=== PATIENT | male | born 1975 | race Caucasian/White ===

== ENCOUNTER → 2016-08-23 | Outpatient (REF) | payer OTHER | LOC: M SFHCPLAZ 11:25 | PROVIDERS: ATTEND Student in an Organized Health Care Education/Training Program | DX: E11.9 Type 2 diabetes mellitus without complications (principal) ==

== ENCOUNTER 2017-01-30 19:37 | Emergency (ER) | payer MEDICAID, OTHER, SELFPAY ==
[~2017-01-30] VITALS: Ht 170.2 cm; Wt 140.9 kg
[2017-01-30] MEDS ORDERED: IBUPROFEN 800 MG TAB PO ONE (21:30)
[2017-01-30 22:04] LABS: BASO % 0.4 % (0.0-1.0); EOS # 0.3 K/mm3 (0.0-0.50); EOS % 2.9 % (0.0-3.0); LARGE UNSTAINED CELL # 0.2 K/mm3 (0.0-0.4); LARGE UNSTAINED CELL % 1.5 % (0.0-4.0); LYMPH # 2.5 K/mm3 (1.5-4.5); LYMPH % 19.6 % (24.0-44.0); MEAN CORPUSCULAR HEMOGLOBIN 30.5 pg (27.0-33.0); MEAN CORPUSCULAR HGB CONC 33.5 g/dl (32.0-36.5); MONO # 0.5 K/mm3 (0.0-0.8); MONO % 4.3 % (0.0-5.0); NEUTROPHILS # 8.4 K/mm3 (1.8-7.7); NEUTROPHILS % 71.4 % (36.0-66.0); PLATELET COUNT, AUTOMATED 224 k/mm3 (150-450); RED CELL DISTRIBUTION WIDTH 14.7 % (11.5-14.5); WHITE BLOOD COUNT 11.8 K/mm3 (4.0-10.0)
[2017-01-30 22:19] LABS: ANION GAP 8 MEQ/L (8-16); BLOOD UREA NITROGEN 7 MG/DL (7-18); CALCIUM LEVEL 9.1 MG/DL (8.5-10.1); CARBON DIOXIDE LEVEL 27 MEQ/L (21-32); CHLORIDE LEVEL 107 MEQ/L (98-107); CREATININE FOR GFR 0.64 MG/DL (0.70-1.30); GLOMERULAR FILTRATION RATE > 60.0 (>60); GLUCOSE, FASTING 101 MG/DL (70-105); POTASSIUM SERUM 4.3 MEQ/L (3.5-5.1); SODIUM LEVEL 142 MEQ/L (136-145)
[2017-01-30 22:21] LABS: ERYTHROCYTE SEDIMENTATION RATE 23 mm/hr (0-15)
[2017-01-30] MEDS ORDERED: LIPI80TA PO (22:28)
[2017-01-30] MEDS ORDERED: BREO1INH INH (22:28)
[2017-01-30] MEDS ORDERED: METF10004 PO (22:28)
[2017-01-30] MEDS ORDERED: PROTPAK PO (22:28)
[2017-01-30] MEDS ORDERED: ALBU17IN INH (22:28)
[2017-01-30] MEDS ORDERED: RANI15TA PO (22:28)
[2017-01-30] MEDS ORDERED: CYCL10TA PO (22:42)
[2017-01-30] MEDS ORDERED: CYCLOBENZAPRINE 10 MG TAB PO ONE (22:45)
[2017-01-30 22:56] VITALS: BP 138/95
== END 2017-01-30 22:58 | disposition home or self-care (01) ==
LOC: M ED 19:37
DX: G44.209 Tension-type headache, unspecified, not intractable (principal); E11.9 Type 2 diabetes mellitus without complications; F33.9 Major depressive disorder, recurrent, unspecified; F41.9 Anxiety disorder, unspecified; J45.909 Unspecified asthma, uncomplicated; F17.210 Nicotine dependence, cigarettes, uncomplicated; E78.00 Pure hypercholesterolemia, unspecified; Z79.899 Other long term (current) drug therapy; Z79.51 Long term (current) use of inhaled steroids; Z79.84 Long term (current) use of oral hypoglycemic drugs; Z91.030 Bee allergy status

== ENCOUNTER → 2017-04-18 | Outpatient (REF) | payer OTHER ==
[~2017-04-18] MED LIST: ALBU17IN INH; BREO1INH INH; CYCL10TA PO; LIPI80TA PO; METF10004 PO; PROTPAK PO; RANI15TA PO
[2017-04-18 12:09] LABS: ALBUMIN 3.4 GM/DL (3.2-5.2); ALKALINE PHOSPHATASE 83 U/L (45-117); ALT/SGPT 79 U/L (12-78); ANION GAP 8 MEQ/L (8-16); AST/SGOT 52 U/L (7-37); BILIRUBIN,TOTAL 0.4 MG/DL (0.2-1.0); BLOOD UREA NITROGEN 10 MG/DL (7-18); CALCIUM LEVEL 8.7 MG/DL (8.5-10.1); CARBON DIOXIDE LEVEL 27 MEQ/L (21-32); CHLORIDE LEVEL 104 MEQ/L (98-107); CHOLESTEROL LEVEL 159 MG/DL (<200); CREATININE FOR GFR 0.66 MG/DL (0.70-1.30); GLOMERULAR FILTRATION RATE > 60.0 (>60); GLUCOSE, FASTING 156 MG/DL (70-105); POTASSIUM SERUM 4.1 MEQ/L (3.5-5.1); SODIUM LEVEL 139 MEQ/L (136-145); TOTAL PROTEIN 6.5 GM/DL (6.4-8.2); TRIGLYCERIDES LEVEL 188 MG/DL (<150)
== END ==
LOC: M SFHCPLAZ 09:20
DX: Z51.81 Encounter for therapeutic drug level monitoring (principal); Z79.899 Other long term (current) drug therapy; E78.2 Mixed hyperlipidemia; E11.9 Type 2 diabetes mellitus without complications

== ENCOUNTER → 2017-05-24 | Outpatient (CLI) | payer OTHER ==
[2017-05-24 11:41] LABS: FERRITIN 159 NG/ML (26-388); PERCENT SATURATION 19.1 % (19.7-50.0); TOTAL IRON BINDING CAPACITY 351 UG/DL (250-450)
[2017-05-25 10:01] LABS: HEPATITIS B SURFACE ANTIBODY NEGATIVE (POSITIVE)
[2017-05-25 14:13] LABS: ALPHA 1 ANTITRYPSIN 151 mg/dL (90-200)
== END ==
LOC: M LAB 10:25
DX: R74.8 Abnormal levels of other serum enzymes (principal)
CPT/HCPCS: 86706

== ENCOUNTER → 2017-12-12 | Outpatient (REF) | payer OTHER ==
[2017-12-12 12:00] LABS: ALBUMIN 3.5 GM/DL (3.2-5.2); ALBUMIN/GLOBULIN RATIO 1.09 (1.00-1.93); ALKALINE PHOSPHATASE 96 U/L (45-117); ALT/SGPT 76 U/L (12-78); AST/SGOT 62 U/L (7-37); BILIRUBIN,DIRECT 0.1 MG/DL (0.0-0.2); BILIRUBIN,TOTAL 0.4 MG/DL (0.2-1.0); TOTAL PROTEIN 6.7 GM/DL (6.4-8.2)
== END ==
LOC: M SFHCPLAZ 09:13
DX: R94.5 Abnormal results of liver function studies (principal)
CPT/HCPCS: 80076

== ENCOUNTER → 2018-04-24 | Outpatient (REF) | payer OTHER | LOC: M SFHCPLAZ 11:21 | DX: E11.9 Type 2 diabetes mellitus without complications (principal); Z53.8 Procedure and treatment not carried out for other reasons ==

== ENCOUNTER 2018-06-12 20:27 | Emergency (ER) | payer OTHER ==
[~2018-06-12] VITALS: Ht 170.2 cm; Wt 139.6 kg
[2018-06-12 20:28] VITALS: BP 157/76
[2018-06-12] MEDS ORDERED: IBUPROFEN 800 MG TAB PO ONE (22:45)
[2018-06-12] MEDS ORDERED: IBUP-354 PO (22:50)
--- NOTE | 2018-06-13 01:43 | REP ---
Clinical: Trauma/injury. Technique: AP and lateral views of the right knee. Findings: Lateral view suggests anterior suprapatellar effusion and should be correlated clinically. The osseous structures demonstrate mild arthritic changes. No obvious acute fracture or dislocation identified. Impression: Cannot exclude suprapatellar effusion. No obvious acute fracture or dislocation identified. Electronically Signed by Arnold Brice MD 06/13/2018 01:35 A
--- NOTE | 2018-06-13 15:37 | ED PDOC ---
Post-Departure Follow-Up dr nath faxed formal report of right knee film for fu Tushar Lancaster MD Jun 13, 2018 15:37
== END 2018-06-12 23:10 | disposition home or self-care (01) ==
LOC: M ED 20:27
DX: S83.91XA Sprain of unspecified site of right knee, initial encounter (principal); X58.XXXA Exposure to other specified factors, initial encounter; Y92.89 Other specified places as the place of occurrence of the external cause; J45.909 Unspecified asthma, uncomplicated; E11.9 Type 2 diabetes mellitus without complications; K21.9 Gastro-esophageal reflux disease without esophagitis; E78.00 Pure hypercholesterolemia, unspecified; Z79.899 Other long term (current) drug therapy; Z79.84 Long term (current) use of oral hypoglycemic drugs; Z91.030 Bee allergy status; Z77.098 Contact with and (suspected) exposure to other hazardous, chiefly nonmedicinal, chemicals

== ENCOUNTER → 2018-07-19 | Outpatient (REF) | payer OTHER ==
[~2018-07-19] MED LIST changes: +IBUP-354 PO; +KETO10TAB PO; +PRED5TA
[2018-07-19 13:13] LABS: ALBUMIN 3.4 GM/DL (3.2-5.2); ALT/SGPT 65 U/L (12-78); BILIRUBIN,TOTAL 0.4 MG/DL (0.2-1.0); BLOOD UREA NITROGEN 8 MG/DL (7-18); CALCIUM LEVEL 8.4 MG/DL (8.5-10.1); CARBON DIOXIDE LEVEL 26 MEQ/L (21-32); CHLORIDE LEVEL 106 MEQ/L (98-107); CHOLESTEROL LEVEL 198 MG/DL (<200); CHOLESTEROL RISK RATIO 6.827 (<5); CREATININE FOR GFR 0.74 MG/DL (0.70-1.30); GLOMERULAR FILTRATION RATE > 60.0 (>60); GLUCOSE, FASTING 88 MG/DL (70-100); HDL CHOLESTEROL 29 MG/DL (>40); LDL CHOLESTEROL 140 MG/DL (<100); NON-HDL-C 169 MG/DL; POTASSIUM SERUM 4.1 MEQ/L (3.5-5.1); SODIUM LEVEL 143 MEQ/L (136-145); TOTAL PROTEIN 6.9 GM/DL (6.4-8.2); TRIGLYCERIDES LEVEL 144 MG/DL (<150)
[2018-07-19 13:22] LABS: MALB URINE SIEMENS 11.7 MG/L; MAU/CREAT RATIO 4.4 MCG/MG (0.0-30.0)
== END ==
LOC: M SFHCPLAZ 09:37
PROVIDERS: ATTEND Family Medicine
DX: E11.8 Type 2 diabetes mellitus with unspecified complications (principal)

== ENCOUNTER 2018-07-21 19:43 | Emergency (ER) | payer OTHER ==
[~2018-07-21] VITALS: Ht 172.7 cm; Wt 148.6 kg
[~2018-07-21 19:43] MED LIST changes: -KETO10TAB PO; -PRED5TA
[2018-07-21 19:45] VITALS: BP 141/90
[2018-07-21] MEDS ORDERED: PRED5TA (19:49)
[2018-07-21] MEDS ORDERED: CYCL10TA PO (20:52)
[2018-07-21] MEDS ORDERED: KETO10TAB PO (20:52)
[2018-07-21] MEDS ORDERED: KETOROLAC TROMETHAMINE 10 MG TAB PO ONE (21:00)
[2018-07-21] MEDS ORDERED: CYCLOBENZAPRINE 10 MG TAB PO ONE (21:00)
--- NOTE | 2018-07-22 02:15 | REP ---
Clinical: Trauma. Technique: Frontal view of the chest with multiple (four) views of the left hemithorax. Findings: Frontal view of the chest demonstrates no acute cardiopulmonary process. Multiple (four) views of the left hemithorax demonstrates no obvious acute rib fracture or pathology. Impression: Normal left rib series. No acute rib fracture identified. Electronically Signed by Arnold Brice MD 07/22/2018 02:07 A
== END 2018-07-21 21:01 | disposition home or self-care (01) ==
LOC: M ED 19:43
DX: S39.011A Strain of muscle, fascia and tendon of abdomen, initial encounter (principal); X58.XXXA Exposure to other specified factors, initial encounter; Y92.9 Unspecified place or not applicable; Y93.9 Activity, unspecified; Y99.9 Unspecified external cause status; E11.9 Type 2 diabetes mellitus without complications; E78.5 Hyperlipidemia, unspecified; K21.9 Gastro-esophageal reflux disease without esophagitis; J45.909 Unspecified asthma, uncomplicated; M54.9 Dorsalgia, unspecified; F41.9 Anxiety disorder, unspecified; F32.9 Major depressive disorder, single episode, unspecified; Z77.098 Contact with and (suspected) exposure to other hazardous, chiefly nonmedicinal, chemicals; Z79.84 Long term (current) use of oral hypoglycemic drugs; Z79.899 Other long term (current) drug therapy; Z91.030 Bee allergy status

== ENCOUNTER → 2018-08-13 | Outpatient (CLI) | payer OTHER ==
[~2018-08-13] MED LIST changes: +KETO10TAB PO; +PRED5TA
--- NOTE | 2018-08-14 08:55 | REP ---
MRI RIGHT KNEE WITHOUT CONTRAST: 08/13/2018. Comparison: x-ray 06/12/2018. Clinical history: Right lateral knee pain for about a month well kneeling. Technique: Axial fat suppressed T2 with both coronal and sagittal PD and fat suppressed T2 sequences. Findings: PCL is intact. The ACL shows some fluid infiltrating distal fibers suggesting some strain but no complete tear and contiguous fibers are seen along much of its thickness throughout its course. Some fluid in the intercondylar notch and suprapatellar bursa representing a joint effusion. There is oblique grade 3 signal and posterior horn medial meniscus communicating to the inferior articular surface. This represents a tear. The anterior horn is diminutive. I suspect a displaced bucket-handle tear which is suggested to be posterior aspect of the more midline medial compartment behind the attachment of the posterior horn and above it adjacent to the PCL. The medial collateral ligamentous complex is intact. The medial patellar retinaculum shows some increased signal but no definite tear. No popliteal fossa cyst evident. The lateral meniscus shows increased signal anterior horn obliquely communicating to the inferior articular surface, this suggests a tear. The medial and lateral compartments both show some mild chondromalacia more on the tibial plateau than femoral condyles. There is no bone bruise or fracture adjacent. The lateral collateral ligamentous complex is intact. Lateral patellar retinaculum shows some increased signal adjacent to its fibers but no definite tear. A suprapatellar effusion extends into the bursal recesses adjacent to the medial and lateral femoral condyles. The proximal tibiofibular articulation is intact. Popliteus tendon appears lax on the sagittal images and may have injury. The quadriceps and patellar tendons are intact. There is a suprapatellar plica evident. The joint effusion is small overall. There is some mild chondromalacia patella but no patellar subluxation or fracture. Impression: 1. Complex tear involving oblique signal posterior horn medial meniscus communicating to its articular surface and a bucket-handle type tear of the anterior horn displaced posteriorly and towards the midline in the joint. 2. Tear possibly degenerative-type in the anterior horn of the lateral meniscus without a loose body. Popliteus tendon injury suspected. 3. Some strain distal fibers ACL with intrasubstance signal but no complete tear or avulsion and the PCL intact. 4. Collateral ligamentous complexes intact and some strain of the lateral patellar retinacula. 5. A joint effusion with suprapatellar plica. 6. Tricompartment chondromalacia, mild. Electronically Signed by Ross Briscoe MD 08/14/2018 09:45 P
== END ==
LOC: M RAD 17:21
PROVIDERS: ATTEND Student in an Organized Health Care Education/Training Program
DX: S83.231A Complex tear of medial meniscus, current injury, right knee, initial encounter (principal); X58.XXXA Exposure to other specified factors, initial encounter; Y92.89 Other specified places as the place of occurrence of the external cause; M94.261 Chondromalacia, right knee; M25.461 Effusion, right knee

== ENCOUNTER → 2019-02-28 | Outpatient (CLI) | payer OTHER ==
[~2019-02-28] MED LIST changes: +ALBU8.5H INH; +ATOR80TA59 PO; +CYCL5TAB PO; +GLYB25TA PO; +PANT20TA2 PO; +RANI150T14 PO; +STRI1AER2 INH; +VENTAER INH
[2019-02-28 11:04] LABS: BLOOD UREA NITROGEN 11 MG/DL (7-18); CALCIUM LEVEL 9.1 MG/DL (8.5-10.1); CARBON DIOXIDE LEVEL 29 MEQ/L (21-32); CHLORIDE LEVEL 103 MEQ/L (98-107); CREATININE FOR GFR 0.73 MG/DL (0.70-1.30); GLOMERULAR FILTRATION RATE > 60.0 (>60); GLUCOSE, FASTING 191 MG/DL (70-100); POTASSIUM SERUM 4.4 MEQ/L (3.5-5.1); SODIUM LEVEL 139 MEQ/L (136-145)
--- NOTE | 2019-02-28 21:16 | ECGEPIP ---
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
== END ==
LOC: M LAB 09:22
PROVIDERS: ATTEND Anesthesiology
DX: Z01.818 Encounter for other preprocedural examination (principal); E11.9 Type 2 diabetes mellitus without complications

== ENCOUNTER 2019-03-04 11:28 | Day surgery (SDC) | payer OTHER, SELFPAY ==
[~2019-03-04] VITALS: Ht 172.7 cm; Wt 147.4 kg
[~2019-03-04 11:28] MED LIST changes: +LR 1,000 ML IV ONE; +ceFAZolin SOD 2 GM in IV 1 EA IV ONE
[2019-03-04] MEDS ORDERED: BUPIVACAINE HCL 0.5% 30 ML VIAL As Ordered ONE (14:40)
[2019-03-04] MEDS ORDERED: MIDAZOLAM INJ 2 MG/2 ML VIAL (J2250) As Ordered ONE (15:53)
[2019-03-04] MEDS ORDERED: LIDOCAINE 2% INJ 100 MG/5 ML SDV (FOR ANES.) As Ordered ONE (15:53)
[2019-03-04] MEDS ORDERED: ONDANSETRON 4MG/2ML VIAL (J2405) As Ordered ONE (15:53)
[2019-03-04] MEDS ORDERED: MIDAZOLAM INJ 5 MG/ML VIAL (J2250) As Ordered ONE (15:53)
[2019-03-04] MEDS ORDERED: propofoL 200 MG/20 ML VIAL As Ordered ONE (15:53)
[2019-03-04] MEDS ORDERED: dexameTHASONE 4 MG/ML 1ML VIAL (J1100) As Ordered ONE (15:53)
[2019-03-04] MEDS ORDERED: fentaNYL 250 MCG/5 ML INJECTION (J3010) As Ordered ONE (15:53)
[2019-03-04] MEDS ORDERED: propofoL 500 MG/50 ML VIAL As Ordered ONE (15:53)
[2019-03-04] MEDS ORDERED: KETOROLAC 60 MG/2 ML VIAL (J1885) As Ordered ONE (16:27)
[2019-03-04] MEDS ORDERED: LR 1,000 ML IV SCH ×2 (16:45→17:00)
[2019-03-04] MEDS ORDERED: ONDANSETRON 4MG/2ML VIAL (J2405) IV PRN (16:45)
[2019-03-04] MEDS ORDERED: fentaNYL 100 MCG/2 ML INJECTION (J3010) IV PRN (16:45)
[2019-03-04] MEDS ORDERED: PERCOCET 5MG/325MG TAB PO PRN (16:45)
[2019-03-04] MEDS ORDERED: PERCOCET 5MG/325MG TAB As Ordered ONE (17:11)
--- NOTE | 2019-03-04 18:46 | RO ---
DATE OF PROCEDURE: 03/04/2019 PREOPERATIVE DIAGNOSIS: 1. Right knee medial and lateral meniscus tear. 2. Right knee partial ACL tear. 3. Right osteoarthritis. POSTOPERATIVE DIAGNOSIS 1. Right knee medial and lateral meniscus tear. 2. Right knee partial ACL tear. 3. Right osteoarthritis. OPERATIVE PROCEDURE: 1. Right knee examination under anesthesia. 2. Right knee arthroscopic partial medial and lateral meniscectomy. 3. Right knee chondroplasty. SURGEON: Marek Arrington MD SHIP ERECTOR: ANESTHESIA: Spinal. IV FLUIDS: Lactated Ringer's. ESTIMATED BLOOD LOSS: 5 mL IMPLANTS: None. DESCRIPTION OF PROCEDURE Patient identified in preoperative holding area. The right leg marked by myself. He was brought to the operating room and then spinal anesthesia was induced. All bony prominences were well padded. He had a Venodyne boot on the left lower extremity for DVT prophylaxis. Well-padded tourniquet applied to the right thigh. Examination under anesthesia revealed range of motion from 0 to 130 degrees, stable to varus-valgus stress, had a grade 1 A Marcellus with a good endpoint, negative pivot shift. The right leg was then prepped and draped in normal sterile fashion with Chloraprep. He received appropriate IV antibiotics. Prior to incision time-out performed per hospital protocol. The right leg was exsanguinated with an Esmarch bandage and tourniquet inflated to 300 mmHg. An anterolateral portal was localized with a spinal needle, incision made with #[id number]. 30 degrees arthroscope was introduced into the joint revealing grade 2 chondromalacia of the central patella. Otherwise patellofemoral joint is in great condition. No loose bodies in the gutters. Medial compartment was entered where there was a macerated complex tear. This was a bucket handle tear. The medial meniscus which was completely displaced and largely detached. There was even a loose fragment. An anteromedial portal was created under direct visualization and on probing the medial meniscus there was a large unstable tear. This was not amendable to repair. I then performed a partial medial meniscectomy, removing the unstable tissue with the shaver and meniscal punches. There was an unstable piece of medial meniscus tissue still attached to the root that was flipped up superiorly and was quite hard. There was some bone in it. I switched portals, used the small up-biter and was able to release that. Those sent for pathology. He did have an intact peripheral rim probably a peripheral once-third of his medial meniscus remained and that was stable on probing. There was significant chondromalacia in the medial compartment. The ACL was then probed and found to be slightly lax on probing, but again his examination under anesthesia was excellent. The leg was brought to a figure of four position where there was a complex tear in the lateral meniscus. The entire lateral meniscus had unhealthy tissue and again a great degree complexity. The root itself was stable on probing. I performed a partial lateral meniscectomy with meniscal punches and shaver. There is grade 2 chondromalacia diffusely in the tibial plateau, grade 1 in the femoral condyle. At the completion of the partial lateral meniscectomy all remaining tissue was stable. I estimated I removed approximately one-third of the lateral meniscus. The knee was then brought into full extension. Chondroplasty performed to the patella with a shaver. The knee was irrigated and drained. Portals closed with nylon suture. I injected 30 mL 0.5% Marcaine without epinephrine for local anesthetic. Bulky sterile dressing applied and at the time of this dictation he was about to be transferred to PACU.
[2019-03-04 20:00] VITALS: BP 141/75
== END 2019-03-04 20:10 | disposition home or self-care (01) ==
LOC: M SDC 11:28
PROVIDERS: ATTEND Orthopaedic Surgery
DX: S83.211A Bucket-handle tear of medial meniscus, current injury, right knee, initial encounter (principal); M23.261 Derangement of other lateral meniscus due to old tear or injury, right knee; M17.11 Unilateral primary osteoarthritis, right knee; S83.512A Sprain of anterior cruciate ligament of left knee, initial encounter; M94.261 Chondromalacia, right knee; E11.9 Type 2 diabetes mellitus without complications; K44.9 Diaphragmatic hernia without obstruction or gangrene; K21.9 Gastro-esophageal reflux disease without esophagitis; M51.36 Other intervertebral disc degeneration, lumbar region; G47.33 Obstructive sleep apnea (adult) (pediatric); J45.909 Unspecified asthma, uncomplicated; R06.83 Snoring; F17.210 Nicotine dependence, cigarettes, uncomplicated; Z91.030 Bee allergy status; Z79.899 Other long term (current) drug therapy; Z68.42 Body mass index [BMI] 45.0-49.9, adult; Z87.81 Personal history of (healed) traumatic fracture; X58.XXXA Exposure to other specified factors, initial encounter; Y93.9 Activity, unspecified; Y92.9 Unspecified place or not applicable; Y99.9 Unspecified external cause status
CPT/HCPCS: 29880; 88300; J0690; J1100; J1885; J2250; J2405; J3010

== ENCOUNTER → 2019-04-21 | Outpatient (REF) | payer OTHER ==
[~2019-04-21] MED LIST changes: -LR 1,000 ML IV ONE; -ceFAZolin SOD 2 GM in IV 1 EA IV ONE
[2019-04-21 18:15] LABS: CHOLESTEROL LEVEL 204 MG/DL (<200); CHOLESTEROL RISK RATIO 7.555 (<5); HDL CHOLESTEROL 27 MG/DL (>40); NON-HDL-C 177 MG/DL; TRIGLYCERIDES LEVEL 475 MG/DL (<150)
[2019-04-21 19:23] LABS: HEMOGLOBIN A1c 8.1 %
== END ==
LOC: M SFHCPLAZ 14:43
PROVIDERS: ATTEND Family Medicine
DX: E11.9 Type 2 diabetes mellitus without complications (principal); E78.2 Mixed hyperlipidemia

== ENCOUNTER 2019-05-31 15:32 | Emergency (ER) | payer OTHER, SELFPAY ==
[~2019-05-31] VITALS: Ht 172.7 cm; Wt 146.9 kg
[2019-05-31] MEDS ORDERED: FAMO1TAB11 (15:37)
[2019-05-31 16:21] LABS: BASO # 0.1 10^3/uL (0.0-0.2); BASO % 0.8 % (0.0-1.0); EOS # 0.3 10^3/uL (0.0-0.5); EOS % 3.6 % (0.0-3.0); HEMOGLOBIN 14.8 g/dl (13.5-17.5); LYMPH # 2.6 10^3/uL (1.5-5.0); MEAN CORPUSCULAR HGB CONC 32.2 g/dl (32.0-36.5); MEAN CORPUSCULAR VOLUME 93.3 fl (80.0-96.0); MONO # 0.6 10^3/uL (0.0-0.8); MONO % 7.2 % (0.0-5.0); NEUTROPHILS % 58.1 % (36.0-66.0); PLATELET COUNT, AUTOMATED 182 10^3/uL (150-450); RED BLOOD COUNT 4.93 10^6/uL (4.30-6.10); WHITE BLOOD COUNT 8.7 10^3/uL (4.0-10.0)
[2019-05-31 16:39] LABS: ERYTHROCYTE SEDIMENTATION RATE 21 mm/hr (0-15)
[2019-05-31 16:46] LABS: ALBUMIN 3.1 GM/DL (3.2-5.2); ALT/SGPT 81 U/L (12-78); BILIRUBIN,DIRECT < 0.1 MG/DL (0.0-0.2); BILIRUBIN,TOTAL 0.5 MG/DL (0.2-1.0); BLOOD UREA NITROGEN 8 MG/DL (7-18); CALCIUM LEVEL 8.5 MG/DL (8.5-10.1); CARBON DIOXIDE LEVEL 22 MEQ/L (21-32); CHLORIDE LEVEL 107 MEQ/L (98-107); CREATININE FOR GFR 0.73 MG/DL (0.70-1.30); GLOMERULAR FILTRATION RATE > 60.0 (>60); GLUCOSE, FASTING 221 MG/DL (70-100); LIPASE 600 U/L (73-393); POTASSIUM SERUM 3.8 MEQ/L (3.5-5.1); SODIUM LEVEL 137 MEQ/L (136-145); TOTAL PROTEIN 7.4 GM/DL (6.4-8.2)
[2019-05-31] MEDS ORDERED: NS 1,000 ML IV SCH (18:02)
[2019-05-31] MEDS ORDERED: PANTOPRAZOLE 40MG INJ (PROTONIX) (C9113) IV ONE (18:15)
[2019-05-31] MEDS ORDERED: ONDANSETRON 4MG/2ML VIAL (J2405) IV ONE (18:15)
[2019-05-31] MEDS: GASTROGRAFIN SOLUTION 30ML PO SCH ×2 (18:30→19:05)
[2019-05-31] MEDS ORDERED: ISOVUE-370 76% 100ML VIAL (Q9967) As Ordered ONE (19:34)
--- NOTE | 2019-05-31 20:24 | REPVR ---
PROCEDURE INFORMATION: Exam: CT Abdomen And Pelvis With Contrast Exam date and time: 05/31/2019 8:03 PM Age: 44 years old Clinical indication: Abdominal pain; Localized; Right lower quadrant (rlq); Additional info: Rlq pain TECHNIQUE: Imaging protocol: Computed tomography of the abdomen and pelvis with intravenous contrast. Radiation optimization: All CT scans at this facility use at least one of these dose optimization techniques: automated exposure control; mA and/or kV adjustment per patient size (includes targeted exams where dose is matched to clinical indication); or iterative reconstruction. Contrast material: ISOVUE 370; Contrast volume: 100 ml; Contrast route: IV; Other contrast: Route: Oral, Material: gastrographen; COMPARISON: CT ABD PELVIS WITH CONTRAST 12/30/2014 4:05 PM FINDINGS: Lungs: No suspicious mass or airspace process in the visualized lung bases. Mediastinum: Small hiatal hernia with circumferential edema in the distal esophagus. Liver: Liver is enlarged and decreased in density suggesting hepatic steatosis. Gallbladder and bile ducts: Gallbladder is present and shows no evidence of gallstone. Pancreas: Pancreas appears normal. No focal mass or peripancreatic inflammation. Spleen: Spleen appears homogeneous without focal mass. Adrenals: Adrenal glands are normal in appearance. Kidneys and ureters: Kidneys are unremarkable aside from a stable anterior mid pole left renal cyst. Stomach and bowel: No evidence of small bowel obstruction. No evidence of acute diverticulitis. Appendix: Normal caliber appendix is identified, with no adjacent inflammation. Intraperitoneal space: No pneumoperitoneum. No evidence of a mesenteric mass. Vasculature: Main portal and splenic veins enhance normally. No aortic aneurysm . Lymph nodes: No enlarged lymph nodes. Bladder: Urinary bladder appears normal. Bones/joints: Bony structures show no acute fracture or destructive process. Multi-level, age-related thoracic degenerative disc disease is present. Soft tissues: Unremarkable. IMPRESSION: 1. No evidence of acute appendicitis, with normal appearing appendix identified, and no right urinary tract abnormality is seen. 2. Hepatomegaly and hepatic steatosis. No evidence of gallstones or biliary tract disease. 3. Small hiatal hernia and circumferential distal esophageal thickening which can be associated with reflux disease. Electronically signed by: Merlin Hardwick On 05/31/2019 20:23:55 PM
[2019-05-31 20:33] LABS: INR 1.06; PROTHROMBIN TIME 13.5 SECONDS (11.8-14.0)
[2019-05-31 20:48] VITALS: BP 140/78
--- NOTE | 2019-06-02 07:40 | ED PDOC ---
Post-Departure Follow-Up dr nath faxed fomral report of ct abd/p for fiu laneyg Tushar Galdamez MD Jun 02, 2019 07:40
== END 2019-05-31 20:48 | disposition home or self-care (01) ==
LOC: M ED 15:32
DX: R10.9 Unspecified abdominal pain (principal); E11.9 Type 2 diabetes mellitus without complications; I10 Essential (primary) hypertension; K21.9 Gastro-esophageal reflux disease without esophagitis; R16.0 Hepatomegaly, not elsewhere classified; K76.0 Fatty (change of) liver, not elsewhere classified; K22.9 Disease of esophagus, unspecified; Z79.899 Other long term (current) drug therapy; Z91.030 Bee allergy status
CPT/HCPCS: 74177; 80048; 80076; 81001; 83690; 85025; 85610; 85652; 86850; 86900; 86901; 96374; 96375; 99284; C9113; J2405; Q9963; Q9967

== ENCOUNTER 2019-11-13 19:44 | Emergency (ER) | payer SELFPAY ==
[~2019-11-13] VITALS: Ht 172.7 cm; Wt 145.3 kg
[~2019-11-13 19:44] MED LIST changes: +CYCL-707 PO; -CYCL10TA PO; +FAMO1TAB11
[2019-11-13 20:47] LABS: BASO # 0.1 10^3/uL (0.0-0.2); BASO % 0.4 % (0.0-1.0); EOS # 0.1 10^3/uL (0.0-0.5); EOS % 0.9 % (0.0-3.0); HEMATOCRIT 46.9 % (42.0-52.0); HEMOGLOBIN 15.3 g/dl (13.5-17.5); LYMPH # 2.4 10^3/uL (1.5-5.0); MEAN CORPUSCULAR HEMOGLOBIN 29.5 pg (27.0-33.0); MEAN CORPUSCULAR HGB CONC 32.6 g/dl (32.0-36.5); MEAN CORPUSCULAR VOLUME 90.4 fl (80.0-96.0); MONO # 1.1 10^3/uL (0.0-0.8); MONO % 6.5 % (0.0-5.0); NEUTROPHILS # 12.4 10^3/uL (1.5-8.5); NEUTROPHILS % 76.8 % (36.0-66.0); PLATELET COUNT, AUTOMATED 205 10^3/uL (150-450); RED BLOOD COUNT 5.19 10^6/uL (4.30-6.10); WHITE BLOOD COUNT 16.2 10^3/uL (4.0-10.0)
[2019-11-13] MEDS ORDERED: ACETAMINOPHEN TAB 650MG DOSE (2X325MG) PO ONE (21:00)
[2019-11-13] MEDS ORDERED: LIDOCAINE W/EPINEPHRINE 1% 20ML VIAL As Ordered ONE (21:14)
[2019-11-13] MEDS ORDERED: LIDOCAINE W/EPINEPHRINE 1% 20ML VIAL SC ONE (21:15)
[2019-11-13] MEDS ORDERED: BACT800T5 PO (21:26)
--- NOTE | 2019-11-13 21:26 | REPVR ---
PROCEDURE INFORMATION: Exam: US Pelvis Limited, Male Exam date and time: 11/13/2019 9:12 PM Age: 44 years old Clinical indication: Cellulitis; Buttock; Additional info: Infection vs abscess left gluteal area TECHNIQUE: Imaging protocol: Real-time pelvic ultrasound with image documentation. COMPARISON: CT ABD/PEL W/IV ORAL CONTRAS 05/31/2019 7:54 PM FINDINGS: Soft tissues: Heterogeneous circumscribed area of decreased echogenicity surrounded by subcutaneous edema measuring 12 x 13 x 8 mm which may reflect a small abscess. Subcutaneous edema in the area of interest in the left buttock. IMPRESSION: Mildly hypoechoic heterogeneous collection measuring 12 x 13 x 8 mm in the area of interest which may reflect a small abscess. There is surrounding subcutaneous edema. Electronically signed by: Eliu Santos On 11/13/2019 21:25:48 PM
[2019-11-13] MEDS ORDERED: BACTRIM 160MG/800MG DS TAB PO ONE (21:30)
[2019-11-13 21:34] VITALS: BP 162/79
== END 2019-11-13 21:35 | disposition home or self-care (01) ==
LOC: M ED 19:44
DX: L02.31 Cutaneous abscess of buttock (principal); L03.317 Cellulitis of buttock; F17.218 Nicotine dependence, cigarettes, with other nicotine-induced disorders; Z91.030 Bee allergy status

== ENCOUNTER 2020-03-13 16:42 | Emergency (ER) | payer SELFPAY ==
[~2020-03-13] VITALS: Ht 172.7 cm; Wt 143.1 kg
[2020-03-13 16:42] VITALS: BP 167/89
[~2020-03-13 16:42] MED LIST changes: +BACT800T5 PO; -PANT20TA2 PO; +PANT20TA6 PO
[2020-03-13] MEDS ORDERED: MICO2CR TOP (17:31)
== END 2020-03-13 17:40 | disposition home or self-care (01) ==
LOC: M ED 16:42
DX: B36.9 Superficial mycosis, unspecified (principal); E11.9 Type 2 diabetes mellitus without complications; I10 Essential (primary) hypertension; J45.909 Unspecified asthma, uncomplicated; K21.9 Gastro-esophageal reflux disease without esophagitis; F17.200 Nicotine dependence, unspecified, uncomplicated; Z79.899 Other long term (current) drug therapy; Z91.030 Bee allergy status

== ENCOUNTER → 2020-09-20 | Outpatient (REF) | payer OTHER ==
[~2020-09-20] MED LIST changes: +GLYB2.5T7 PO; -GLYB25TA PO; +MICO2CR TOP
[2020-09-20 13:59] LABS: APPEARANCE, URINE HAZY (CLEAR); BACTERIA, URINE AUTO NEGATIVE (NEGATIVE); BILIRUBIN, URINE AUTO NEGATIVE (NEGATIVE); BLOOD, URINE BLOOD 1+ (NEGATIVE); COLOR, URINE YELLOW (YELLOW); GLUCOSE, URINE (UA) AUTO 3+ mg/dL (NEGATIVE); KETONE, URINE AUTO TRACE mg/dL (NEGATIVE); LEUKOCYTE ESTERASE, URINE AUTO 3+ (NEGATIVE); NITRITE, URINE AUTO NEGATIVE (NEGATIVE); PROTEIN, URINE AUTO NEGATIVE (NEGATIVE); RBC, URINE AUTO 9 /HPF (0-3); SPECIFIC GRAVITY URINE AUTO 1.031 (1.002-1.035); SQUAMOUS EPITHELIAL CELL UR AU 1 /HPF (0-6); UROBILINOGEN, URINE AUTO 0.2 mg/dL (0.0-2.0); WBC, URINE AUTO 17 /HPF (0-3)
== END ==
LOC: M SFHCPLAZ 09:16
PROVIDERS: ATTEND Family Medicine
DX: E11.9 Type 2 diabetes mellitus without complications (principal); E78.5 Hyperlipidemia, unspecified; B49 Unspecified mycosis; N30.01 Acute cystitis with hematuria

== ENCOUNTER → 2020-10-01 | Outpatient (CLI) | payer SELFPAY ==
[2020-10-01 18:03] LABS: APPEARANCE, URINE CLEAR (CLEAR); BACTERIA, URINE AUTO NEGATIVE (NEGATIVE); BILIRUBIN, URINE AUTO NEGATIVE (NEGATIVE); BLOOD, URINE BLOOD NEGATIVE (NEGATIVE); COLOR, URINE YELLOW (YELLOW); GLUCOSE, URINE (UA) AUTO 3+ mg/dL (NEGATIVE); KETONE, URINE AUTO NEGATIVE (NEGATIVE); LEUKOCYTE ESTERASE, URINE AUTO NEGATIVE (NEGATIVE); MUCUS, URINE SMALL (NEGATIVE); NITRITE, URINE AUTO NEGATIVE (NEGATIVE); PROTEIN, URINE AUTO NEGATIVE (NEGATIVE); RBC, URINE AUTO 3 /HPF (0-3); SPECIFIC GRAVITY URINE AUTO 1.027 (1.002-1.035); SQUAMOUS EPITHELIAL CELL UR AU 0 /HPF (0-6); UROBILINOGEN, URINE AUTO 0.2 mg/dL (0.0-2.0); WBC, URINE AUTO 2 /HPF (0-3)
[2020-10-01 18:04] LABS: CHOLESTEROL RISK RATIO 5.187 (<5)
[2020-10-01 18:41] LABS: HEMOGLOBIN A1c 11.8 %
== END ==
LOC: M LAB 16:16
PROVIDERS: ATTEND Student in an Organized Health Care Education/Training Program
DX: E11.9 Type 2 diabetes mellitus without complications (principal); E78.5 Hyperlipidemia, unspecified; B49 Unspecified mycosis

== ENCOUNTER → 2020-10-12 | Outpatient (REF) | payer OTHER | LOC: M SFHCPLAZ 10:17 | PROVIDERS: ATTEND Family Medicine | DX: E11.8 Type 2 diabetes mellitus with unspecified complications (principal) ==

== ENCOUNTER → 2020-11-17 | Outpatient (CLI) | payer OTHER, SELFPAY ==
[~2020-11-17] MED LIST changes: +ASPI81TA26 PO; +EZET10TA21 PO; +VITMTA PO
== END ==
LOC: M LABSMTC 10:02
PROVIDERS: ATTEND Anesthesiology
DX: Z01.812 Encounter for preprocedural laboratory examination (principal); Z20.822 Contact with and (suspected) exposure to COVID-19

== ENCOUNTER → 2020-11-19 | Outpatient (CLI) | payer SELFPAY ==
[~2020-11-19] MED LIST changes: +MICO14CR TOP; -MICO2CR TOP; +PERCOCET PO
--- NOTE | 2020-11-19 13:23 | ECGEPIP ---
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
[2020-11-19 13:25] LABS: HEMATOCRIT 46.9 % (42.0-52.0); HEMOGLOBIN 15.2 g/dl (13.5-17.5); MEAN CORPUSCULAR HEMOGLOBIN 29.4 pg (27.0-33.0); MEAN CORPUSCULAR HGB CONC 32.4 g/dl (32.0-36.5); MEAN CORPUSCULAR VOLUME 90.7 fl (80.0-96.0); PLATELET COUNT, AUTOMATED 181 10^3/uL (150-450); RED BLOOD COUNT 5.17 10^6/uL (4.30-6.10); WHITE BLOOD COUNT 9.1 10^3/uL (4.0-10.0)
[2020-11-19 14:21] LABS: ALBUMIN 3.3 GM/DL (3.2-5.2); ALT/SGPT 46 U/L (12-78); BILIRUBIN,TOTAL 0.4 MG/DL (0.2-1.0); BLOOD UREA NITROGEN 9 MG/DL (7-18); CALCIUM LEVEL 9.1 MG/DL (8.5-10.1); CARBON DIOXIDE LEVEL 25 MEQ/L (21-32); CHLORIDE LEVEL 105 MEQ/L (98-107); CREATININE FOR GFR 0.66 MG/DL (0.70-1.30); GLOMERULAR FILTRATION RATE > 60.0 (>60); GLUCOSE, FASTING 261 MG/DL (70-100); POTASSIUM SERUM 4.2 MEQ/L (3.5-5.1); SODIUM LEVEL 136 MEQ/L (136-145); TOTAL PROTEIN 6.9 GM/DL (6.4-8.2)
--- NOTE | 2020-11-21 07:41 | REP ---
INDICATION: PHIMOSIS/ LABS 1ST, EKG 2ND, XR 3RD COMPARISON: 06/24/2014 TECHNIQUE: PA and lateral. FINDINGS: The mediastinum and cardiac silhouette are normal. The lung polanco are clear and without acute consolidation, effusion, or pneumothorax. The skeletal structures are intact and normal. IMPRESSION: No acute cardiopulmonary process. <Electronically signed by Arnold Brice > 11/21/20 [id number]
== END ==
LOC: M LAB 12:17
PROVIDERS: ATTEND Urology
DX: N47.1 Phimosis (principal)

== ENCOUNTER 2020-11-22 06:02 | Day surgery (SDC) | payer SELFPAY ==
[~2020-11-22] VITALS: Ht 170.2 cm; Wt 132.4 kg
[~2020-11-22 06:02] MED LIST changes: +LR 1,000 ML IV ONE; -PERCOCET PO; +ceFAZolin SOD 2 GM in IV 1 EA IV ONE
[2020-11-22] MEDS ORDERED: BACITRACIN OINTMENT 30GM TUBE As Ordered ONE (07:08)
[2020-11-22] MEDS ORDERED: ONDANSETRON 4MG/2ML VIAL As Ordered ONE (07:18)
[2020-11-22] MEDS ORDERED: MIDAZOLAM INJ 2MG/2ML VIAL (J2250 PER 1MG) As Ordered ONE (07:18)
[2020-11-22] MEDS ORDERED: LIDOCAINE 2% 100MG/5ML SDV (FOR ANES.) As Ordered ONE (07:18)
[2020-11-22] MEDS ORDERED: propofoL 200 MG/20 ML VIAL As Ordered ONE ×2 (07:18→07:58)
[2020-11-22] MEDS ORDERED: fentaNYL 100 MCG/2 ML INJECTION (J3010) As Ordered ONE (07:19)
[2020-11-22] MEDS ORDERED: METOCLOPRAMIDE INJ 10MG/2ML VIAL (J2765 PER 1) As Ordered ONE (08:21)
[2020-11-22] MEDS ORDERED: ACETAMINOPHEN 1000MG 100ML IV BTL (OFIRMEV) (J0131 PER 10MG) As Ordered ONE (08:21)
[2020-11-22] MEDS ORDERED: PHENYLephrine 500MCG 5ML (100MCG/ML) SYRINGE As Ordered ONE (09:16)
[2020-11-22] MEDS ORDERED: ONDANSETRON 4MG/2ML VIAL IV PRN (09:30)
[2020-11-22] MEDS ORDERED: PERCOCET 5MG/325MG TAB PO PRN (09:30)
[2020-11-22] MEDS ORDERED: HYDROMORPHONE HCL 0.5 MG/ 0.5 ML SYRINGE (J1170 PER 1) IV PRN (09:30)
[2020-11-22] MEDS ORDERED: fentaNYL 100 MCG/2 ML INJECTION (J3010) IV PRN (09:30)
[2020-11-22] MEDS ORDERED: oxyCODONE 5MG TAB PO PRN (09:30)
[2020-11-22] MEDS ORDERED: LR 1,000 ML IV SCH (09:30)
[2020-11-22] MEDS ORDERED: HumaLOG INSULIN (NovoLOG) PER UNIT SC ONE (09:30)
[2020-11-22] MEDS ORDERED: PERCOCET PO (09:32)
--- NOTE | 2020-11-22 11:30 | RO ---
OPERATIVE NOTE DATE OF OPERATION: 11/22/2020 PREOPERATIVE DIAGNOSES: Phimosis. POSTOPERATIVE DIAGNOSIS: Phimosis. PROCEDURE: Circumcision. SURGEON: Thanh Singh MD [employer] COACH: Glenda Payton, PGY-1. ANESTHESIA: Spinal. OPERATIVE INDICATIONS: This is a 45-year-old male with phimosis and recurrent episodes of balanitis, who was brought to the operating room for the above procedure for treatment. DESCRIPTION OF PROCEDURE: The patient was brought to the operating room and spinal anesthesia was administered. Prophylactic antibiotics were infused. He was then placed in the supine position and prepped and draped in the usual sterile fashion. At this point, circumcising incisions were made around the foreskin at the level of the coronal sulcus with the foreskin completely retracted downward off of the glans and also with it pulled over the glans. All the skin in between the two circumcising incisions was then removed using electrocautery. At this point, any small bleeding vessels were controlled with the electrocautery. Once satisfied with hemostasis, the skin of the penile shaft was then reapproximated to the glans using interrupted 3-0 Chromic sutures. Once this was done, I once again checked for hemostasis and after hemostasis was confirmed, dressings were applied. Dressings included Xeroform gauze wrapped around the circumcision line, a Devika dressing wrapped on top of that, and then a Coban dressing wrapped on top of that. Once dressings were applied, this marked the conclusion of the procedure. The patient was then awakened from anesthesia and transported to the recovery room in stable condition. ESTIMATED BLOOD LOSS: 10 mL COMPLICATIONS: None. SPECIMENS: Foreskin. PLAN: The patient will follow up in urology clinic in a few weeks for postoperative visit. He will take his dressings off in two days. MIREYA
[2020-11-22 14:00] VITALS: BP 150/81
== END 2020-11-22 14:00 | disposition home or self-care (01) ==
LOC: M SDC 06:02
PROVIDERS: ATTEND Urology
DX: N47.1 Phimosis (principal); K44.9 Diaphragmatic hernia without obstruction or gangrene; J45.909 Unspecified asthma, uncomplicated; E78.5 Hyperlipidemia, unspecified; E11.9 Type 2 diabetes mellitus without complications; K21.9 Gastro-esophageal reflux disease without esophagitis; G47.33 Obstructive sleep apnea (adult) (pediatric); Z79.84 Long term (current) use of oral hypoglycemic drugs; Z79.899 Other long term (current) drug therapy; Z91.030 Bee allergy status
CPT/HCPCS: 54161; 88304; J0131; J0690; J2250; J2370; J2405; J2765; J3010

== ENCOUNTER → 2021-03-04 | Outpatient (REF) | payer OTHER ==
[~2021-03-04] MED LIST changes: -LR 1,000 ML IV ONE; +PERCOCET PO; -ceFAZolin SOD 2 GM in IV 1 EA IV ONE
== END ==
LOC: M SFHCPLAZ 09:13
PROVIDERS: ATTEND Family Medicine
DX: E11.9 Type 2 diabetes mellitus without complications (principal)

== ENCOUNTER 2021-03-13 18:14 | Emergency (ER) | payer OTHER ==
[~2021-03-13] VITALS: Ht 172.7 cm; Wt 135.8 kg
--- NOTE | 2021-03-13 19:09 | REP ---
INDICATION: PAIN/DECREASED ROM COMPARISON: None. TECHNIQUE: AP, lateral, bilateral oblique and sunrise views. FINDINGS: The osseous structures and joint spaces are intact and normal. There is no evidence for acute fracture or dislocation. No joint effusion is appreciated. Surrounding soft tissues are unremarkable. No subcutaneous emphysema or radiodense foreign body. IMPRESSION: No acute fracture or dislocation. <Electronically signed by Arnold Brice > 03/13/21 [id number]
[2021-03-13] MEDS ORDERED: NAPROXEN 250 MG TAB PO ONE (19:45)
[2021-03-13 19:52] VITALS: BP 152/81
== END 2021-03-13 19:53 | disposition home or self-care (01) ==
LOC: M ED 18:14
DX: S83.92XA Sprain of unspecified site of left knee, initial encounter (principal); X58.XXXA Exposure to other specified factors, initial encounter; Y92.9 Unspecified place or not applicable; Y93.9 Activity, unspecified; Y99.9 Unspecified external cause status; E11.9 Type 2 diabetes mellitus without complications; E78.5 Hyperlipidemia, unspecified; J45.909 Unspecified asthma, uncomplicated; F17.200 Nicotine dependence, unspecified, uncomplicated; Z79.82 Long term (current) use of aspirin; Z79.899 Other long term (current) drug therapy; Z91.030 Bee allergy status

== ENCOUNTER 2021-04-08 18:08 | Emergency (ER) | payer OTHER ==
[~2021-04-08] VITALS: Ht 172.7 cm; Wt 135.3 kg
[2021-04-08 18:09] VITALS: BP 166/79
[2021-04-08] MEDS ORDERED: KETOROLAC 30 MG/ML 1ML VIAL IM ONE (20:50)
[2021-04-08] MEDS ORDERED: NAPR-837 PO (20:51)
== END 2021-04-08 21:19 | disposition home or self-care (01) ==
LOC: M ED 18:08
DX: S83.92XA Sprain of unspecified site of left knee, initial encounter (principal); X58.XXXA Exposure to other specified factors, initial encounter; Y92.9 Unspecified place or not applicable; Y93.9 Activity, unspecified; Y99.9 Unspecified external cause status; F17.200 Nicotine dependence, unspecified, uncomplicated; R51.9 Headache, unspecified; E78.00 Pure hypercholesterolemia, unspecified; J45.909 Unspecified asthma, uncomplicated; G47.30 Sleep apnea, unspecified; K21.9 Gastro-esophageal reflux disease without esophagitis; E11.9 Type 2 diabetes mellitus without complications; M54.9 Dorsalgia, unspecified; Z79.82 Long term (current) use of aspirin; Z79.899 Other long term (current) drug therapy; Z91.030 Bee allergy status
CPT/HCPCS: 96372; 99283; J1885

== ENCOUNTER → 2021-08-12 | Outpatient (CLI) | payer OTHER ==
[~2021-08-12] MED LIST changes: +NAPR-837 PO
[2021-08-12 17:16] LABS: HEMOGLOBIN A1c 11.6 %
[2021-08-12 17:31] LABS: ALBUMIN 3.6 GM/DL (3.2-5.2); ALT/SGPT 47 U/L (12-78); BILIRUBIN,TOTAL 0.6 MG/DL (0.2-1.0); BLOOD UREA NITROGEN 11 MG/DL (7-18); CALCIUM LEVEL 9.1 MG/DL (8.5-10.1); CARBON DIOXIDE LEVEL 31 MEQ/L (21-32); CHLORIDE LEVEL 101 MEQ/L (98-107); CREATININE FOR GFR 0.82 MG/DL (0.70-1.30); GLOMERULAR FILTRATION RATE > 60.0 (>60); GLUCOSE, FASTING 330 MG/DL (70-100); POTASSIUM SERUM 4.2 MEQ/L (3.5-5.1); SODIUM LEVEL 136 MEQ/L (136-145); TOTAL PROTEIN 7.6 GM/DL (6.4-8.2)
[2021-08-12 17:33] LABS: CREATININE, URINE 61.5 MG/DL; MALB URINE SIEMENS < 5.0 MG/L; MAU/CREAT RATIO 8.1 MCG/MG (0.0-30.0)
== END ==
LOC: M PLAIMG 15:50
PROVIDERS: ATTEND Family Medicine
DX: R05.3 Chronic cough (principal); R74.8 Abnormal levels of other serum enzymes; E11.9 Type 2 diabetes mellitus without complications

== ENCOUNTER → 2021-10-21 | Outpatient (CLI) | payer OTHER ==
[2021-10-21 18:04] LABS: FERRITIN 95 NG/ML (26-388); IRON (FE) 90 UG/DL (65-175); TOTAL IRON BINDING CAPACITY 410 UG/DL (250-450); TOTAL PROTEIN 7.3 GM/DL (6.4-8.2)
[2021-10-21 18:31] LABS: HEPATITIS B SURFACE ANTIGEN NEGATIVE (NEGATIVE)
[2021-10-21 18:59] LABS: HEPATITIS B CORE ANTIBODY IGM NEGATIVE (NEGATIVE); HEPATITIS C VIRUS ABY INDEX 0.1 INDEX (<0.8)
[2021-10-24 16:08] LABS: ANTI DOUBLE STRAND-DNA AB <1 IU/mL (0-9); ANTINUCLEAR ANTIBODIES DIRECT Positive (Negative); LIVER-KIDNEY MICROSOMAL ABY <20.1 Units (0.0-20.0); RNP ANTIBODIES 1.5 AI (0.0-0.9); SJOGREN'S ANTI SS-A <0.2 AI (0.0-0.9); SJOGREN'S ANTI SS-B <0.2 AI (0.0-0.9); SMITH ANTIBODIES <0.2 AI (0.0-0.9); TRANSFERRIN 317 mg/dL (177-329)
[2021-10-25 13:47] LABS: ALBUMIN % 54.8 % (55.8-66.1); ALPHA-1-GLOBULIN % 4.3 % (2.9-4.9); ALPHA-1-GLOBULINS 0.31 GM/DL (0.17-0.41); ALPHA-2-GLOBULINS 0.99 GM/DL (0.42-0.99); ALPHA-2-GLOBULINS % 13.5 % (7.1-11.8); BETA-1-GLOBULINS 0.58 GM/DL (0.28-0.60); BETA-1-GLOBULINS % 7.9 % (4.7-7.2); BETA-2-GLOBULINS 0.53 GM/DL (0.19-0.55); BETA-2-GLOBULINS % 7.2 % (3.2-6.5); GAMMA GLOBULIN % 12.3 % (11.1-18.8)
== END ==
LOC: M PLALAB 15:29
PROVIDERS: ATTEND Family Medicine
DX: R74.8 Abnormal levels of other serum enzymes (principal)

== ENCOUNTER → 2021-11-04 | Outpatient (CLI) | payer OTHER ==
[2021-11-04 18:26] LABS: FERRITIN 86 NG/ML (26-388); IRON (FE) 68 UG/DL (65-175); PERCENT SATURATION 16.6 % (19.7-50.0); TOTAL IRON BINDING CAPACITY 409 UG/DL (250-450); TOTAL PROTEIN 7.4 GM/DL (6.4-8.2)
[2021-11-04 18:42] LABS: HEPATITIS B SURFACE ANTIGEN NEGATIVE (NEGATIVE)
[2021-11-04 19:09] LABS: HEPATITIS B CORE ANTIBODY IGM NEGATIVE (NEGATIVE); HEPATITIS C VIRUS ABY INDEX 0.2 INDEX (<0.8)
[2021-11-08 00:07] LABS: ANTI DOUBLE STRAND-DNA AB <1 IU/mL (0-9); ANTINUCLEAR ANTIBODIES DIRECT Positive (Negative); LIVER-KIDNEY MICROSOMAL ABY <20.1 Units (0.0-20.0); RNP ANTIBODIES 1.6 AI (0.0-0.9); SJOGREN'S ANTI SS-A <0.2 AI (0.0-0.9); SJOGREN'S ANTI SS-B <0.2 AI (0.0-0.9); SMITH ANTIBODIES <0.2 AI (0.0-0.9); TRANSFERRIN 343 mg/dL (177-329)
[2021-11-08 09:45] LABS: ALBUMIN 4.03 GM/DL (3.29-5.55); ALBUMIN % 54.4 % (55.8-66.1); ALPHA-1-GLOBULIN % 4.2 % (2.9-4.9); ALPHA-1-GLOBULINS 0.31 GM/DL (0.17-0.41); ALPHA-2-GLOBULINS 1.01 GM/DL (0.42-0.99); ALPHA-2-GLOBULINS % 13.6 % (7.1-11.8); BETA-1-GLOBULINS 0.61 GM/DL (0.28-0.60); BETA-1-GLOBULINS % 8.3 % (4.7-7.2); BETA-2-GLOBULINS 0.54 GM/DL (0.19-0.55); BETA-2-GLOBULINS % 7.3 % (3.2-6.5)
[2021-11-08 09:46] LABS: GAMMA GLOBULIN % 12.2 % (11.1-18.8)
== END ==
LOC: M PLALAB 15:40
PROVIDERS: ATTEND Student in an Organized Health Care Education/Training Program
DX: R74.8 Abnormal levels of other serum enzymes (principal)

== ENCOUNTER → 2021-11-11 | Outpatient (CLI) | payer OTHER | LOC: M RAD 06:53 | PROVIDERS: ATTEND Family Medicine | DX: R74.8 Abnormal levels of other serum enzymes (principal); K76.89 Other specified diseases of liver ==

== ENCOUNTER → 2021-11-14 | Outpatient (REF) | payer OTHER | LOC: M SFHCPLAZ 09:04 | PROVIDERS: ATTEND Family Medicine | DX: E11.8 Type 2 diabetes mellitus with unspecified complications (principal) ==

== ENCOUNTER → 2021-11-18 | Outpatient (CLI) | payer OTHER | LOC: M PLALAB 15:50 | PROVIDERS: ATTEND Student in an Organized Health Care Education/Training Program | DX: E11.8 Type 2 diabetes mellitus with unspecified complications (principal) ==

== ENCOUNTER → 2021-11-25 | Outpatient (CLI) | payer OTHER ==
[2021-11-25 16:00] LABS: ALBUMIN 3.5 GM/DL (3.2-5.2); ALT/SGPT 49 U/L (12-78); BILIRUBIN,TOTAL 0.5 MG/DL (0.2-1.0); BLOOD UREA NITROGEN 12 MG/DL (7-18); C REACTIVE PROTEIN QUANTITATIV 0.35 MG/DL (0.00-0.30); CALCIUM LEVEL 9.9 MG/DL (8.5-10.1); CARBON DIOXIDE LEVEL 27 MEQ/L (21-32); CHLORIDE LEVEL 108 MEQ/L (98-107); CREATININE FOR GFR 0.67 MG/DL (0.70-1.30); GLOMERULAR FILTRATION RATE > 60.0 (>60); GLUCOSE, FASTING 298 MG/DL (70-100); POTASSIUM SERUM 4.4 MEQ/L (3.5-5.1); RHEUMATOID FACTOR QUANT < 10.0 IU/ML (<15.0); SODIUM LEVEL 140 MEQ/L (136-145); TOTAL PROTEIN 7.1 GM/DL (6.4-8.2); URIC ACID 3.5 MG/DL (3.5-7.2)
[2021-11-30 01:11] LABS: ANA (HEP2) Negative (.); CYCLIC CITRULLINATED PEPTIDE 9 units (0-19)
== END ==
LOC: M PLALAB 13:38
PROVIDERS: ATTEND Student in an Organized Health Care Education/Training Program
DX: R76.8 Other specified abnormal immunological findings in serum (principal)

== ENCOUNTER → 2021-12-21 | Outpatient (CLI) | payer OTHER ==
[2021-12-21 09:54] LABS: BLOOD UREA NITROGEN 9 MG/DL (7-18); CALCIUM LEVEL 10.1 MG/DL (8.5-10.1); CARBON DIOXIDE LEVEL 29 MEQ/L (21-32); CHLORIDE LEVEL 105 MEQ/L (98-107); CREATININE FOR GFR 0.73 MG/DL (0.70-1.30); GLOMERULAR FILTRATION RATE > 60.0 (>60); GLUCOSE, FASTING 246 MG/DL (70-100); POTASSIUM SERUM 4.4 MEQ/L (3.5-5.1); SODIUM LEVEL 139 MEQ/L (136-145)
== END ==
LOC: M RAD 08:44
PROVIDERS: ATTEND Student in an Organized Health Care Education/Training Program
DX: K76.89 Other specified diseases of liver (principal)

== ENCOUNTER → 2021-12-28 | Outpatient (CLI) | payer OTHER ==
[~2021-12-28] MED LIST changes: +ISOVUE-370 76% 100ML VIAL As Ordered ONE
== END ==
LOC: M RAD 08:16
PROVIDERS: ATTEND Student in an Organized Health Care Education/Training Program
DX: K76.89 Other specified diseases of liver (principal); K76.0 Fatty (change of) liver, not elsewhere classified; N28.1 Cyst of kidney, acquired
CPT/HCPCS: 74160; Q9967

== ENCOUNTER 2022-04-28 21:28 | Emergency (ER) | payer OTHER, MEDICARE ==
[~2022-04-28] VITALS: Ht 172.7 cm; Wt 126.6 kg
[~2022-04-28 21:28] MED LIST changes: -ISOVUE-370 76% 100ML VIAL As Ordered ONE
[2022-04-28] MEDS ORDERED: TRUL0.5I SC (21:43)
[2022-04-28] MEDS ORDERED: BASA100I SC (21:43)
[2022-04-28] MEDS ORDERED: NOVOINJ SC (21:43)
[2022-04-29 04:13] LABS: BASO # 0.1 10^3/uL (0.0-0.2); BASO % 0.8 % (0.0-1.0); EOS # 0.5 10^3/uL (0.0-0.5); EOS % 3.4 % (0.0-3.0); HEMATOCRIT 53.1 % (42.0-52.0); HEMOGLOBIN 17.4 g/dl (13.5-17.5); LYMPH # 3.5 10^3/uL (1.5-5.0); MEAN CORPUSCULAR HEMOGLOBIN 29.2 pg (27.0-33.0); MEAN CORPUSCULAR HGB CONC 32.8 g/dl (32.0-36.5); MEAN CORPUSCULAR VOLUME 89.2 fl (80.0-96.0); MONO # 0.9 10^3/uL (0.0-0.8); MONO % 6.9 % (2.0-8.0); NEUTROPHILS # 8.4 10^3/uL (1.5-8.5); NEUTROPHILS % 62.6 % (36.0-66.0); PLATELET COUNT, AUTOMATED 261 10^3/uL (150-450); RED BLOOD COUNT 5.95 10^6/uL (4.30-6.10); WHITE BLOOD COUNT 13.5 10^3/uL (4.0-10.0)
[2022-04-29 04:44] LABS: ALT/SGPT 34 U/L (7.0-40); BILIRUBIN,DIRECT 0.3 MG/DL (<0.4); BILIRUBIN,TOTAL 0.8 MG/DL (0.3-1.2); BLOOD UREA NITROGEN 16 MG/DL (9-23); CARBON DIOXIDE LEVEL 25 MMOL/L (20-31); CHLORIDE LEVEL 102 MMOL/L (98-107); CREATININE FOR GFR 0.66 MG/DL (0.70-1.30); GLOMERULAR FILTRATION RATE > 60.0 (>60); GLUCOSE, FASTING 166 MG/DL (60-100); LIPASE 39 U/L (12-53); POTASSIUM SERUM 4.1 MMOL/L (3.5-5.1); SODIUM LEVEL 139 MMOL/L (136-145); TOTAL PROTEIN 7.6 G/DL (5.7-8.2)
[2022-04-29] MEDS ORDERED: NS 1,000 ML IV ONE (04:55)
[2022-04-29] MEDS ORDERED: KETOROLAC 30 MG/ML 1ML VIAL IV ONE (04:55)
[2022-04-29] MEDS ORDERED: ISOVUE-370 76% 100ML VIAL As Ordered ONE (05:00)
[2022-04-29] MEDS ORDERED: KETO10TAB PO (06:42)
[2022-04-29 06:45] VITALS: BP 123/66
== END 2022-04-29 06:53 | disposition home or self-care (01) ==
LOC: M ED 21:28
DX: S39.011A Strain of muscle, fascia and tendon of abdomen, initial encounter (principal); E11.9 Type 2 diabetes mellitus without complications; E78.5 Hyperlipidemia, unspecified; J44.9 Chronic obstructive pulmonary disease, unspecified; Z79.4 Long term (current) use of insulin; Z79.899 Other long term (current) drug therapy; Z91.030 Bee allergy status
CPT/HCPCS: 74177; 80048; 80076; 81002; 83605; 83690; 85025; 96361; 96374; 99284; J1885

== ENCOUNTER → 2022-07-07 | Outpatient (CLI) | payer OTHER ==
[~2022-07-07] MED LIST changes: +BASA100I SC; +NOVOINJ SC; +TRUL0.5I SC
[2022-07-07 16:53] LABS: APPEARANCE, URINE MANUAL CLEAR (CLEAR); BILIRUBIN, URINE MANUAL NEGATIVE (NEGATIVE); BLOOD URINE MANUAL NEGATIVE (NEGATIVE); COLOR, URINE MANUAL YELLOW (YELLOW); GLUCOSE, URINE (UA) MANUAL 4+(1000 MG/DL) mg/dL (NEGATIVE); KETONE, URINE MANUAL NEGATIVE (NEGATIVE); LEUKOCYTE ESTERASE, URINE MAN NEGATIVE (NEGATIVE); NITRITE, URINE MANUAL NEGATIVE (NEGATIVE); PROTEIN, URINE MANUAL NEGATIVE (NEGATIVE); UROBILINOGEN, URINE MANUAL NORMAL (NORMAL)
[2022-07-07 17:30] LABS: CREATININE, URINE 89.1 MG/DL
[2022-07-07 17:32] LABS: MALB URINE SIEMENS < 3.0 MG/DL; MAU/CREAT RATIO 3.3 MCG/MG (0.0-30.0)
[2022-07-07 17:39] LABS: HEMOGLOBIN A1c 7.2 % (4.0-6.0)
[2022-07-07 17:50] LABS: BLOOD UREA NITROGEN 15 MG/DL (9-23); CALCIUM LEVEL 9.4 MG/DL (8.5-10.1); CARBON DIOXIDE LEVEL 27 MMOL/L (20-31); CHLORIDE LEVEL 103 MMOL/L (98-107); CHOLESTEROL LEVEL 171 MG/DL (<200); CHOLESTEROL RISK RATIO 5.26 (<5); CREATININE FOR GFR 0.61 MG/DL (0.70-1.30); GLOMERULAR FILTRATION RATE > 60.0 (>60); GLUCOSE, FASTING 104 MG/DL (60-100); HDL CHOLESTEROL 32.5 MG/DL (>40); LDL CHOLESTEROL 99.1 MG/DL (<100); NON-HDL-C 139 MG/DL; POTASSIUM SERUM 4.3 MMOL/L (3.5-5.1); SODIUM LEVEL 138 MMOL/L (136-145); TRIGLYCERIDES LEVEL 197 MG/DL (<150)
== END ==
LOC: M PLALAB 15:47
PROVIDERS: ATTEND Student in an Organized Health Care Education/Training Program
DX: E11.65 Type 2 diabetes mellitus with hyperglycemia (principal); E78.00 Pure hypercholesterolemia, unspecified

== ENCOUNTER → 2023-05-16 | Outpatient (CLI) | payer OTHER ==
[2023-05-16 11:03] LABS: BLOOD UREA NITROGEN 11 MG/DL (9-23); CALCIUM LEVEL 9.5 MG/DL (8.5-10.1); CARBON DIOXIDE LEVEL 26 MMOL/L (20-31); CHLORIDE LEVEL 107 MMOL/L (98-107); CHOLESTEROL LEVEL 164 MG/DL (<200); CREATININE FOR GFR 0.62 MG/DL (0.70-1.30); GLOMERULAR FILTRATION RATE > 60.0 (>60); GLUCOSE, FASTING 137 MG/DL (60-100); HDL CHOLESTEROL 34.1 MG/DL (>40); LDL CHOLESTEROL 93.7 MG/DL (<100); NON-HDL-C 129.9 MG/DL; POTASSIUM SERUM 4.4 MMOL/L (3.5-5.1); SODIUM LEVEL 140 MMOL/L (136-145); TRIGLYCERIDES LEVEL 181 MG/DL (<150)
[2023-05-16 11:07] LABS: HEMOGLOBIN A1c 7.3 % (4.0-6.0)
== END ==
LOC: M LAB 09:52
PROVIDERS: ATTEND Student in an Organized Health Care Education/Training Program
DX: Z00.00 Encounter for general adult medical examination without abnormal findings (principal)

== ENCOUNTER → 2023-08-17 | Outpatient (CLI) | payer OTHER ==
[2023-08-17 18:23] LABS: HEMOGLOBIN A1c 7.2 % (4.0-6.0)
== END ==
LOC: M PLALAB 15:39
PROVIDERS: ATTEND Student in an Organized Health Care Education/Training Program
DX: E11.9 Type 2 diabetes mellitus without complications (principal)

== ENCOUNTER 2023-10-11 08:26 | Day surgery (SDC) | payer OTHER ==
[~2023-10-11] VITALS: Ht 172.7 cm; Wt 127.7 kg
[~2023-10-11 08:26] MED LIST changes: +INVO100T PO; +LOPI600T PO
[2023-10-11] MEDS: NS 1,000 ML IV ONE (08:46)
[2023-10-11] MEDS: INSULIN LISPRO (NovoLOG) PER UNIT SC PRN (09:07)
[2023-10-11] MEDS ORDERED: propofoL 500 MG/50 ML VIAL As Ordered ONE (09:43)
[2023-10-11] MEDS ORDERED: LIDOCAINE 2% 100MG/5ML SDV (FOR ANES.) As Ordered ONE (09:43)
[2023-10-11 10:16] VITALS: TEMP 98.8
[2023-10-11 10:35] VITALS: BP 129/62; O2SAT 94
== END 2023-10-11 10:37 | disposition home or self-care (01) ==
LOC: M OPP 08:26
PROVIDERS: ATTEND Internal Medicine Gastroenterology
DX: Z12.11 Encounter for screening for malignant neoplasm of colon (principal); D12.3 Benign neoplasm of transverse colon; D12.4 Benign neoplasm of descending colon; Z12.12 Encounter for screening for malignant neoplasm of rectum; D17.5 Benign lipomatous neoplasm of intra-abdominal organs; K57.30 Diverticulosis of large intestine without perforation or abscess without bleeding; K64.8 Other hemorrhoids; Z87.19 Personal history of other diseases of the digestive system; K21.9 Gastro-esophageal reflux disease without esophagitis; E11.9 Type 2 diabetes mellitus without complications; I11.9 Hypertensive heart disease without heart failure; E78.00 Pure hypercholesterolemia, unspecified; G47.30 Sleep apnea, unspecified; J45.909 Unspecified asthma, uncomplicated; Z79.899 Other long term (current) drug therapy; Z79.4 Long term (current) use of insulin; F17.210 Nicotine dependence, cigarettes, uncomplicated; F17.290 Nicotine dependence, other tobacco product, uncomplicated
CPT/HCPCS: 45385; 88305; J1815

== ENCOUNTER → 2024-03-04 | Outpatient (CLI) | payer OTHER ==
[2024-03-04 11:10] LABS: HEMOGLOBIN A1c 6.7 % (4.0-6.0)
[2024-03-04 11:15] LABS: BLOOD UREA NITROGEN 13 MG/DL (9-23); CALCIUM LEVEL 9.9 MG/DL (8.5-10.1); CARBON DIOXIDE LEVEL 28 MMOL/L (20-31); CHLORIDE LEVEL 109 MMOL/L (98-107); CHOLESTEROL LEVEL 215 MG/DL (<200); CHOLESTEROL RISK RATIO 6.98 (<5); CREATININE FOR GFR 0.73 MG/DL (0.70-1.30); GLOMERULAR FILTRATION RATE > 60.0 (>60); GLUCOSE, FASTING 128 MG/DL (60-100); HDL CHOLESTEROL 30.8 MG/DL (>40); LDL CHOLESTEROL 108.4 MG/DL (<100); MAGNESIUM LEVEL 2.2 MG/DL (1.8-2.4); NON-HDL-C 184.2 MG/DL; POTASSIUM SERUM 4.4 MMOL/L (3.5-5.1); SODIUM LEVEL 140 MMOL/L (136-145); TRIGLYCERIDES LEVEL 379 MG/DL (<150)
== END ==
LOC: M PLALAB 08:56
PROVIDERS: ATTEND Student in an Organized Health Care Education/Training Program
DX: E11.9 Type 2 diabetes mellitus without complications (principal); E78.2 Mixed hyperlipidemia; M25.511 Pain in right shoulder

== ENCOUNTER → 2024-06-19 | Outpatient (CLI) | payer OTHER ==
[~2024-06-19] MED LIST changes: +ATOR-398 PO; -CYCL5TAB PO; +CYCL5TAB4 PO; -LIPI80TA PO
== END ==
LOC: M PLALAB 16:24 → M PLAIMG 16:24
PROVIDERS: ATTEND Student in an Organized Health Care Education/Training Program
DX: R20.2 Paresthesia of skin (principal)

== ENCOUNTER 2024-07-29 08:10 | Outpatient (RCR) | payer OTHER | END 2024-08-01 | LOC: M PT 08:10 | PROVIDERS: ATTEND Student in an Organized Health Care Education/Training Program | DX: M54.12 Radiculopathy, cervical region (principal); S90.129A Contusion of unspecified lesser toe(s) without damage to nail, initial encounter; J45.909 Unspecified asthma, uncomplicated; E78.00 Pure hypercholesterolemia, unspecified; K21.9 Gastro-esophageal reflux disease without esophagitis; F17.200 Nicotine dependence, unspecified, uncomplicated ==

== ENCOUNTER 2024-08-21 08:27 | Outpatient (RCR) | payer OTHER | END 2024-09-01 | LOC: M PT 08:27 | PROVIDERS: ATTEND Student in an Organized Health Care Education/Training Program | DX: M54.12 Radiculopathy, cervical region (principal) ==

== ENCOUNTER → 2024-09-10 | Outpatient (REF) | payer OTHER | LOC: M SFHCPLAZ 08:35 | PROVIDERS: ATTEND Family Medicine | DX: G56.11 Other lesions of median nerve, right upper limb (principal) ==

== ENCOUNTER → 2024-10-01 | Outpatient (RCR) | payer OTHER | LOC: M PT 09-04 08:28 | PROVIDERS: ATTEND Student in an Organized Health Care Education/Training Program | DX: M54.12 Radiculopathy, cervical region (principal); J45.909 Unspecified asthma, uncomplicated; E78.00 Pure hypercholesterolemia, unspecified; K21.9 Gastro-esophageal reflux disease without esophagitis; Z72.0 Tobacco use ==

== ENCOUNTER → 2025-03-13 | Outpatient (CLI) | payer OTHER ==
[~2025-03-13] MED LIST changes: -EZET10TA21 PO; +EZET10TA57 PO
[2025-03-13 14:14] LABS: ESTIMATED AVERAGE GLUCOSE 137.0 MG/DL (60-110)
[2025-03-13 14:27] LABS: CHOLESTEROL LEVEL 156.0 MG/DL (<200); CHOLESTEROL RISK RATIO 4.4 (<5); LDL CHOLESTEROL 89.8 MG/DL (<100); NON-HDL-C 120.6 MG/DL; TRIGLYCERIDES LEVEL 154.0 MG/DL (<150)
== END ==
LOC: M PLAIMG 10:08
PROVIDERS: ATTEND Student in an Organized Health Care Education/Training Program
DX: Z00.00 Encounter for general adult medical examination without abnormal findings (principal); M25.561 Pain in right knee; E11.9 Type 2 diabetes mellitus without complications